=== PATIENT | male | born 1950 | race Caucasian/White ===

== ENCOUNTER 2016-02-06 23:43 | Inpatient (IN) | payer MEDICARE, MEDICAID ==
[~2016-02-06] VITALS: Ht 170.2 cm; Wt 83.9 kg
[2016-02-07 01:07] LABS: BASOPHILS % (AUTO) 0.5 % (0.0-2.0); DIFF TOTAL % 100 %; EOSINOPHILS # (AUTO) 0.2 /CMM (0.0-0.7); EOSINOPHILS % (AUTO) 1.9 % (0.0-6.0); HEMATOCRIT 44 % (39-51); HEMOGLOBIN 14.7 g/dL (13.5-17.5); LYMPHOCYTES # (AUTO) 1.8 /CMM (0.8-4.8); LYMPHOCYTES % (AUTO) 20.1 % (20.0-44.0); MEAN CORPUSCULAR HEMOGLOBIN 30 PG (26.0-33.0); MEAN CORPUSCULAR HGB CONC 34 g/dl (31.0-36.0); MEAN CORPUSCULAR VOLUME 90 fL (80-96); MONOCYTES # (AUTO) 0.6 /CMM (0.1-1.30); MONOCYTES % (AUTO) 7.1 % (2.0-12.0); NEUTROPHILS # (AUTO) 6.3 /CMM (1.8-8.9); NEUTROPHILS % (AUTO) 70.4 % (43.0-81.0); PLATELET COUNT (AUTO) 231 /CMM (150-450); RED BLOOD CELL COUNT(AUTO) 4.87 MIL/uL (4.5-6.0); WHITE BLOOD COUNT (AUTO) 8.9 K/uL (4.3-11.0)
[2016-02-07 01:18] LABS: ANION GAP 11 (5-14); CALCIUM, SERUM 9.1 mg/dL (8.5-10.1); CARBON DIOXIDE 30 mmol/L (21-32); CHLORIDE 103 mmol/L (98-107); CREATININE 1.2 mg/dL (0.6-1.3); GFR 61 mL/min (>60); GLUCOSE 120 mg/dL (74-106); POTASSIUM 4.2 mmol/L (3.5-5.1); SODIUM SERUM 140 mmol/L (136-145); UREA NITROGEN, BLOOD 21 mg/dL (7-18)
[2016-02-07 01:22] LABS: ALANINE AMINOTRANSFERASE 29 U/L (12-78); ALBUMIN 3.8 g/dL (3.4-5.0); ASPARTATE AMINOTRANSFERASE 32 U/L (15-37); BILIRUBIN,DIRECT 0.1 mg/dL (0.0-0.2); BILIRUBIN,TOTAL 0.4 mg/dL (0.2-1.0); INDIRECT BILIRUBIN 0.3 mg/dL (0.0-1.1); TOTAL PROTEIN, SERUM 8.1 g/dL (6.4-8.2)
[2016-02-07 01:23] LABS: ACETAMINOPHEN 0 ug/ml (10-30); SALICYLATE 0.4 mg/dL (2.8-20.0)
[2016-02-07 01:31] LABS: KETONES,URINE NEGATIVE (NEGATIVE); LEUKOCYTE ESTERASE ,URINE NEGATIVE (NEGATIVE)
[2016-02-07 01:37] LABS: CANNABINOID, URINE NEGATIVE (NEGATIVE); PHENCYCLIDINE SCREEN,URINE NEGATIVE (NEGATIVE)
[2016-02-07 01:45] LABS: ADD UA MICROSCOPIC YES
[2016-02-07 01:46] LABS: ADD URINE CULTURE NO; RBC,URINE 0-2 /HPF (0-2); WBC,URINE NONE SEEN /HPF (0-3)
[2016-02-07] MEDS ORDERED: MAGNESIUM HYDROXIDE 30 ML UDC PO PRN (03:00)
[2016-02-07] MEDS ORDERED: MAG HYDROX/AL HYDROX/SIMETH 30 ML UDC PO PRN (03:00)
[2016-02-07] MEDS ORDERED: ACETAMINOPHEN 325 MG TABLET PO PRN (03:00)
[2016-02-07 03:13] VITALS: BP 149/95
[2016-02-07 08:00] VITALS: BP 144/81
[2016-02-07] MEDS ORDERED: DONE5TAB34 PO (08:13)
[2016-02-07] MEDS ORDERED: DULO60CA45 PO (08:13)
[2016-02-07] MEDS: LORAZEPAM 0.5 MG TABLET PO PRN (13:49)
[2016-02-07 16:00] VITALS: BP 158/84
[2016-02-07] MEDS: QUETIAPINE FUMARATE 25 MG TABLET PO SCH (16:29)
[2016-02-07] MEDS ORDERED: CT SWABBABLE VALVE TRANS SET 1 EA INFUS.SET MC ONE (17:00)
[2016-02-07] MEDS ORDERED: IOHEXOL-300 100 ML VIAL IV ONE (17:00)
[2016-02-07] MEDS ORDERED: IV NS 0.9% 0 ML IV ONE (17:00)
[2016-02-07 20:00] VITALS: BP 151/92
[2016-02-07] MEDS ORDERED: IV NS 0.9% 250 ML IV ONE (23:47)
[2016-02-08] MEDS ORDERED: IV SET PRIMARY PUMP SET 1 EA INFUS.SET MC ONE (00:10)
[2016-02-08] MEDS ORDERED: IV NS 0.9% 0 ML IV ONE (00:10)
[2016-02-08] MEDS ORDERED: IOHEXOL-300 100 ML VIAL IV ONE ×2 (00:11→00:14)
[2016-02-08] MEDS ORDERED: CT SWABBABLE VALVE TRANS SET 1 EA INFUS.SET MC ONE (00:11)
[2016-02-08] MEDS: QUETIAPINE FUMARATE 25 MG TABLET PO SCH ×4 (00:48→21:28)
[2016-02-08] MEDS: DONEPEZIL 5 MG TABLET PO SCH ×2 (00:49→21:28)
[2016-02-08 07:21] LABS: CHOLESTEROL 160 mg/dL (<200); HDL CHOLESTEROL 59 mg/dL (40-60); LDL 93 mg/dL (0-99); TRIGLYCERIDES 90 mg/dL (30-150)
[2016-02-08 08:00] VITALS: BP 125/88
[2016-02-08] MEDS: NICOTINE PATCH (14MG) 14 MG PATCH.TD24 TD SCH (08:20)
[2016-02-08 16:01] VITALS: BP 138/90
[2016-02-08 19:49] VITALS: BP 145/87
[2016-02-09 08:00] VITALS: BP 142/87
[2016-02-09] MEDS: QUETIAPINE FUMARATE 25 MG TABLET PO SCH ×3 (08:44→22:04)
[2016-02-09] MEDS: NICOTINE PATCH (14MG) 14 MG PATCH.TD24 TD SCH (08:44)
[2016-02-09 16:00] VITALS: BP 144/88
[2016-02-09 20:04] VITALS: BP 146/99
[2016-02-09] MEDS: DONEPEZIL 5 MG TABLET PO SCH (22:04)
[2016-02-09] MEDS: ZOLPIDEM TARTRATE 5 MG TABLET PO PRN (22:05)
[2016-02-10 00:36] VITALS: BP 147/86
[2016-02-10 08:14] VITALS: BP 143/95
[2016-02-10] MEDS: QUETIAPINE FUMARATE 25 MG TABLET PO SCH ×4 (08:24→21:09)
[2016-02-10] MEDS: NICOTINE PATCH (14MG) 14 MG PATCH.TD24 TD SCH (08:24)
[2016-02-10] MEDS: LORAZEPAM 0.5 MG TABLET PO PRN (08:38)
[2016-02-10 16:35] VITALS: BP 150/88
[2016-02-10 19:59] VITALS: BP 154/79
[2016-02-10] MEDS: DONEPEZIL 5 MG TABLET PO SCH (21:09)
[2016-02-10] MEDS: ZOLPIDEM TARTRATE 5 MG TABLET PO PRN (21:09)
[2016-02-10] MEDS ORDERED: GUAIFENESIN/D-METHORPHAN HB 5 ML UDC PO PRN (21:30)
[2016-02-11 08:13] VITALS: BP 128/85
[2016-02-11] MEDS: NICOTINE PATCH (14MG) 14 MG PATCH.TD24 TD SCH (09:09)
[2016-02-11] MEDS: QUETIAPINE FUMARATE 25 MG TABLET PO SCH ×2 (09:09→17:00)
[2016-02-11 16:17] VITALS: BP 147/105
[2016-02-11 20:10] VITALS: BP 153/97
[2016-02-11] MEDS: DONEPEZIL 5 MG TABLET PO SCH (21:25)
[2016-02-11] MEDS: QUETIAPINE FUMARATE 100 MG TABLET PO SCH (21:25)
[2016-02-12 08:00] VITALS: BP 134/73
[2016-02-12] MEDS: QUETIAPINE FUMARATE 25 MG TABLET PO SCH ×2 (08:05→16:09)
[2016-02-12] MEDS: NICOTINE PATCH (14MG) 14 MG PATCH.TD24 TD SCH (08:07)
[2016-02-12 16:00] VITALS: BP 127/85
[2016-02-12 20:14] VITALS: BP 157/89
[2016-02-12] MEDS: QUETIAPINE FUMARATE 100 MG TABLET PO SCH (21:07)
[2016-02-12] MEDS: DONEPEZIL 5 MG TABLET PO SCH (21:07)
[2016-02-13 08:00] VITALS: BP 128/83
[2016-02-13] MEDS: NICOTINE PATCH (14MG) 14 MG PATCH.TD24 TD SCH (08:53)
[2016-02-13] MEDS: QUETIAPINE FUMARATE 25 MG TABLET PO SCH ×2 (08:53→17:33)
[2016-02-13 16:02] VITALS: BP 134/90
[2016-02-13 20:00] VITALS: BP 144/91
[2016-02-13] MEDS: QUETIAPINE FUMARATE 100 MG TABLET PO SCH (21:07)
[2016-02-13] MEDS: DONEPEZIL 5 MG TABLET PO SCH (21:07)
[2016-02-14 08:00] VITALS: BP 131/91
[2016-02-14] MEDS: QUETIAPINE FUMARATE 25 MG TABLET PO SCH ×2 (09:15→16:29)
[2016-02-14] MEDS: NICOTINE PATCH (14MG) 14 MG PATCH.TD24 TD SCH (09:15)
== END 2016-02-14 16:30 | disposition home health service (06) | DRG 885 ==
LOC: ER 23:57 → GPS 02-07 02:14
PROVIDERS: ADMIT Psychiatry & Neurology Psychiatry; ATTEND Family Medicine
DX: F29 Unspecified psychosis not due to a substance or known physiological condition (principal); F02.81 Dementia in other diseases classified elsewhere, unspecified severity, with behavioral disturbance; R47.01 Aphasia; G30.9 Alzheimer's disease, unspecified; I10 Essential (primary) hypertension; F20.9 Schizophrenia, unspecified
CPT/HCPCS: 36415; 70470-TC; 80048-TC; 80061-TC; 80076-TC; 81000-TC; 84425; 85025-TC; 87081-TC; 95819-TC; A4606; G0434; G6038-TC; G6039-TC; G6040-TC; J7050; Q9967; Z7610

== ENCOUNTER 2017-07-27 09:22 | Inpatient (IN) | payer MEDICARE, MEDICAID ==
[~2017-07-27] VITALS: Ht 360.7 cm; Wt 69.9 kg
[~2017-07-27 09:22] MED LIST: DONE5TAB34 PO; DULO60CA45 PO
--- NOTE | 2017-07-27 09:25 | NUR ---
ESTRADA FROM [facility] FOR G-TUBE REPLACEMENT. PER FACILITY, CHUA IN PLACE OF TUBE, BUT UPON ARRIVAL TO ER, NOTHING IN PLACE OF GTUBE. PATIENT IS A/OX 1 AT BASELINE, BREATHING EVEN AND UNLABORED. NO SOB, NAD, VITALS STABLE. SAFETY AND COMFORT MEASURES IN PLACE. AWAITING MD ORDERS.
--- NOTE | 2017-07-27 09:40 | NUR ---
AT KATHY FRANCO
[2017-07-27] MEDS ORDERED: LORAZEPAM INJ 2 MG/ML VIAL ONE (09:46)
[2017-07-27] MEDS ORDERED: HALOPERIDOL LACTATE INJ 5 MG/ML VIAL ONE (09:46)
--- NOTE | 2017-07-27 09:56 | NUR ---
PATIENT VERY AGITATED, MEDICATED PATIENT PER MD ORDERS.
--- NOTE | 2017-07-27 09:59 | NUR ---
PAGED EPIC INSIGHTS MANAGER -- DR MORAN
[2017-07-27] MEDS ORDERED: HALOPERIDOL LACTATE INJ 5 MG/ML VIAL IM ONE (10:00)
[2017-07-27] MEDS ORDERED: LORAZEPAM INJ 2 MG/ML VIAL IM ONE (10:00)
[2017-07-27] MEDS ORDERED: MAGN400O6 GT (10:01)
[2017-07-27] MEDS ORDERED: IPRA3AMP23 IH (10:01)
[2017-07-27] MEDS ORDERED: LORA-259 GT (10:01)
[2017-07-27] MEDS ORDERED: CHOL100044 GT (10:01)
[2017-07-27] MEDS ORDERED: NA P133E RC (10:01)
[2017-07-27] MEDS ORDERED: FAMO20TA8 GT (10:01)
[2017-07-27] MEDS ORDERED: QUET200T GT (10:01)
[2017-07-27] MEDS ORDERED: ACET-868 GT (10:01)
[2017-07-27] MEDS ORDERED: SENN8.8S12 GT (10:01)
[2017-07-27] MEDS ORDERED: BISA10SU8 RC (10:01)
[2017-07-27] MEDS ORDERED: LACT-96 GT (10:01)
[2017-07-27] MEDS ORDERED: DOCU-270 GT (10:01)
[2017-07-27] MEDS ORDERED: AMLO5TAB7 GT (10:01)
[2017-07-27] MEDS ORDERED: HALO100A2 IM (10:01)
[2017-07-27] MEDS ORDERED: MEMA10TA GT (10:01)
[2017-07-27] MEDS ORDERED: ACET-2605 GT (10:01)
[2017-07-27] MEDS ORDERED: ZOLP5TAB2 GT (10:01)
--- NOTE | 2017-07-27 10:11 | NUR ---
PATIENT IS GOING TO [facility] 309-2.
--- NOTE | 2017-07-27 10:18 | NUR ---
NEW IV STARTED ON LAC, 20G. BLOOD DRAWN AND SENT TO LAB.
[2017-07-27 10:20] LABS: BASOPHILS % (AUTO) 0.3 % (0.0-2.0); EOSINOPHILS % (AUTO) 1.2 % (0.0-6.0); HEMATOCRIT 39 % (39-51); HEMOGLOBIN 13.4 g/dL (13.5-17.5); LYMPHOCYTES # (AUTO) 1.1 /CMM (0.8-4.8); LYMPHOCYTES % (AUTO) 11.9 % (20.0-44.0); MEAN CORPUSCULAR HGB CONC 34 g/dl (31.0-36.0); MEAN CORPUSCULAR VOLUME 89 fL (80-96); MONOCYTES # (AUTO) 0.5 /CMM (0.1-1.30); NEUTROPHILS # (AUTO) 7.4 /CMM (1.8-8.9); NEUTROPHILS % (AUTO) 81.6 % (43.0-81.0); PLATELET COUNT (AUTO) 239 /CMM (150-450); RDW COEFFICIENT OF VARIATION 13.2 (11.5-15.0); RED BLOOD CELL COUNT(AUTO) 4.41 MIL/uL (4.5-6.0); WHITE BLOOD COUNT (AUTO) 9.1 K/uL (4.3-11.0)
--- NOTE | 2017-07-27 10:21 | NUR ---
REPORT GIVEN TO WILMER HERRON FOR MONCHO UPON ADMISSION.
[2017-07-27 10:27] LABS: CALCIUM, SERUM 9.5 mg/dL (8.5-10.1); CREATININE 1.4 mg/dL (0.6-1.3)
[2017-07-27] MEDS ORDERED: MORPHINE SULFATE INJ 4 MG/ML DISP.SYRIN IV PRN (10:30)
[2017-07-27] MEDS ORDERED: Z GUARD REMEDY 2 OZ OINT TP PRN (10:30)
[2017-07-27] MEDS ORDERED: ONDANSETRON HCL/PF 4 MG/2 ML VIAL IVP PRN (10:30)
[2017-07-27] MEDS ORDERED: BISACODYL SUPP (10 MG) 10 MG/SUPP.RECT SUPP.RECT RC PRN (10:30)
[2017-07-27] MEDS ORDERED: NA PHOS,M-B/NA PHOS,DI-BA 1 EA ENEMA RC PRN (10:30)
[2017-07-27 10:33] LABS: ALBUMIN 3.4 g/dL (3.4-5.0); BILIRUBIN,DIRECT 0.3 mg/dL (0.0-0.2); BILIRUBIN,TOTAL 0.6 mg/dL (0.2-1.0); TOTAL PROTEIN, SERUM 7.9 g/dL (6.4-8.2)
[2017-07-27] MEDS ORDERED: IPRATROPIUM NEB FS 0.5 MG/2.5 ML AMPUL.NEB NEB PRN (11:00)
--- NOTE | 2017-07-27 11:19 | NUR ---
PATIENT TRANSPORTED TO [facility] VIA STRETCHER. RNWILMER TO PROVIDE MONCHO.
[2017-07-27 11:30] VITALS: BP 140/80
--- NOTE | 2017-07-27 11:30 | NUR ---
GENERAL TECHNICIAN NOTES RECEIVED RESIDENT AWAKE VIA GINO FROM ER. PATIENT CAME IN FROM [facility] DUE TO GT REPLACEMENT AFTER PULLING IT OUT. GT SITE INTACT AND COVERED WITH A DRESSING. FOR GI CONSULT - PENDING. NPO. PATIENT IS ALERT AND ORIENTD X1-2. CONFUSED. VERBALLY RESPONSIVE. IV LINE ON LEFT AC #20 - INTACT AND PATENT. AMBULATORY. FREQUENTLY TRIES TO GET UP. ALSO WITH BEHAVIORS OF PICKING ON THE THINGS AROUND HIM. A 1:1 SITTER WAS PLACED. ALL OTHER NEEDS MET. KEPT CLEAN AND DRY. CALL LIGHT WITHIN REACH. BED ON LOWEST LOCKED POSITION. FALL PRECAUTIONS OBSERVED.
[2017-07-27] MEDS: LORAZEPAM INJ 2 MG/ML VIAL IV PRN ×2 (12:29→18:22)
[2017-07-27] MEDS: IV D5/0.45 NACL 1,000 ML IV PRN (13:18)
[2017-07-27] MEDS ORDERED: ALBUTEROL FS 2.5 MG/0.5 ML VIAL.NEB NEB PRN (13:30)
[2017-07-27 16:05] VITALS: BP 127/78
--- NOTE | 2017-07-27 18:40 | NUR ---
RN CLOSING NOTES PATIENT SITTING UP ON CHAIR WITH FREQUENT ATTEMPTS TO GET UP. 1:[address] ALERT AND ORIENTED X1-2, CONFUSED. VERBALLY RESPONSIVE. LAST ATIVAN GIVEN AT 1822. IV LINE ON LEFT AC #20 PATENT AND INTACT. INFUSING D5 1/2 NS @75ML/HR. GI CONSULT STILL PENDING. FOR LABS (CBC, BMP, MAG, AND PHOS) IN AM. STAT CHEST XRAY COMPLETED. KEPT CLEAN, DRY, AND COMFORTABLE. ALL NEEDS ATTENDED TO. BED ON LOWEST LOCKED POSITION. CALL LIGHT WITHIN REACH. FALL PRECAUTIONS OBSERVED. WILL ENDORSE TO ONCOMING RN FOR CONTINUITY OF CARE.
--- NOTE | 2017-07-27 19:10 | NUR ---
RN OPENING NOTES RECEIVED PT SITTING UP IN CHAIR, IN NO ACUTE DISTRESS, NOTED TO BE FIDGETING, NO SOB, BREATHING EVEN AND UNLABORED. PT WITH SITTER AT BEDSIDE. ALL PATIENT'S NEEDS ATTENDED TO AT THIS TIME. PLACED CALL LIGHT WITHIN EASY REACH. WILL CONTINUE TO MONITOR.
--- NOTE | 2017-07-27 21:00 | NUR ---
RN NOTE NOTED PT'S IV LINE TO BE PULLED OUT BY PATIENT. STARTED A NEW IV SITE ON RFA G#22. FLUSHED WITH 10 CC NS, INTACT AND PATENT. PATIENT NOTED WITH COMBATIVE BEHAVIOR BUT WAS RE-ORIENTED. WILL CONTINUE TO MONITOR.
[2017-07-28] MEDS: LORAZEPAM INJ 2 MG/ML VIAL IV PRN ×4 (00:44→21:29)
--- NOTE | 2017-07-28 06:57 | NUR ---
RN CLOSING NOTES PATIENT AWAKE ALL THROUGHOUT THE SHIFT, ALL DUE MEDICATION GIVEN. WITH MULTIPLE ATTEMPTS OF GETTING OUT OF BED UNASSISTED RE-ORIENTED PT NEEDED. PT NEEDS REINFORCEMENT AND HAS SITTER AT BEDSIDE. IVF INFUSING WELL ON RFA G22 ORDERED. ALL PATIENT'S NEEDS ATTENDED TO THROUGHOUT THE SHIFT. PLACED CALL LIGHT WITHIN EASY REACH. BED PLACED IN LOW POSITION AND LOCKED IN PLACE. WILL ENDORSE TO AM SHIFT NURSE FOR CONTINUITY OF CARE.
[2017-07-28 07:32] LABS: BASOPHILS % (AUTO) 0.5 % (0.0-2.0); EOSINOPHILS % (AUTO) 0.7 % (0.0-6.0); HEMATOCRIT 40 % (39-51); HEMOGLOBIN 13.8 g/dL (13.5-17.5); LYMPHOCYTES # (AUTO) 1.9 /CMM (0.8-4.8); LYMPHOCYTES % (AUTO) 20.2 % (20.0-44.0); MEAN CORPUSCULAR HGB CONC 34 g/dl (31.0-36.0); MEAN CORPUSCULAR VOLUME 92 fL (80-96); MONOCYTES # (AUTO) 0.6 /CMM (0.1-1.30); MONOCYTES % (AUTO) 6.8 % (2.0-12.0); NEUTROPHILS # (AUTO) 6.8 /CMM (1.8-8.9); NEUTROPHILS % (AUTO) 71.8 % (43.0-81.0); PLATELET COUNT (AUTO) 266 /CMM (150-450); RDW COEFFICIENT OF VARIATION 14.1 (11.5-15.0); RED BLOOD CELL COUNT(AUTO) 4.36 MIL/uL (4.5-6.0); WHITE BLOOD COUNT (AUTO) 9.5 K/uL (4.3-11.0)
[2017-07-28 07:47] LABS: CALCIUM, SERUM 9.2 mg/dL (8.5-10.1); CREATININE 1.1 mg/dL (0.6-1.3); MAGNESIUM 1.9 mg/dL (1.8-2.4); PHOSPHORUS 2.9 mg/dL (2.5-4.9); POTASSIUM 3.7 mmol/L (3.5-5.1)
[2017-07-28 08:00] VITALS: BP 129/84
--- NOTE | 2017-07-28 09:20 | NUR ---
MS RN NOTES PATIENT IN DISORIENTED AND CONFUSED, BREATHING ON ROOM AIR. APPEARS AGITATED AND RESTLESS, DENIES PAIN, REORIENTED AND UNABLE TO CALM DOWN. PRN ATIVAN IV GIVEN, WILL REASSESS. CALL LIGHT WITHIN REACH, 1:1 SITTER AT THE BEDSIDE. WILL CONT TO MONITOR.
--- NOTE | 2017-07-28 14:38 | NUR ---
PATIENT STILL AGITATED, UNABLE TO CONTROL BEHAVIOR RESTLESSNESS, AT THE BEDSIDE. SAFETY MEASURES IN PLACE. PATIENT IS NOT DUE FOR NEXT ATIVAN PRN DOSE. INFORMED DR. MORAN, FREQUENCY CHANGED TO [id number] PRN.
[2017-07-28 16:00] VITALS: BP_SYST 134; BP_DIAS 77; BP_DIAS 97
--- NOTE | 2017-07-28 18:49 | NUR ---
MS RN CLOSING NOTES PATIENT IS CONFUSED, EPISODE OF AGITATION AND RESTLESSNESS. BEHAVIOR ANXIETY, SEVERE AGITATION MANAGED BY PRN IV ATIVAN WITH INTERMITTENT RELIEF. MAINTAINED 1:1 SITTER AT THE BEDSIDE. PATIENT IS CURRENTLY NPO, FOR PEG PLACEMENT TOMORROW 07/29/17, PROCEDURE CONSENTED BY . CONSENT FORM PLACE IN THE CHART. WILL ENDORSE TO ONCOMING RN.
--- NOTE | 2017-07-28 19:15 | NUR ---
RN OPENING NOTES RECEIVED PATIENT SITTING UP IN BED, REMAINS TO BE CONFUSED, ALERT ONLY TO SELF. NOTED PT WITH NO SOB, IN NO ACUTE DISTRESS, DENIES PAIN AT THIS TIME. PATIENT WITH POOR SAFETY AWARENESS, PLACED BED IN LOW POSITION AND LOCKED IN PLACE. CALL LIGHT WITHIN EASY REACH WITH SITTER AT BEDSIDE.WILL CONTINUE TO MONITOR.
[2017-07-28] MEDS: IV D5/0.45 NACL 1,000 ML IV PRN (21:29)
--- NOTE | 2017-07-28 21:29 | NUR ---
RN NOTES PATIENT IN BED, NOTED TO BE ANXIOUS AND WITH MULTIPLE ATTEMPTS OF GETTING OUT OF BED UNASSISTED, REORIENTED AND REDIRECTED PT BUT CONTINUES WITH BEHAVIOR. ADMINISTERED ATIVAN ORDERED. WILL CONTINUE TO MONITOR PT.
[2017-07-29] VITALS (10 sets, daily range): BP systolic 107–135; BP diastolic 61–87
[2017-07-29] MEDS: LORAZEPAM INJ 2 MG/ML VIAL IV PRN ×2 (06:11→16:12)
--- NOTE | 2017-07-29 06:22 | NUR ---
RN CLOSING NOTES PATIENT IN BED, AWAKE, NO SOB, BREATHING EVEN AND UNLABORED. PT SLEPT INTERMITTENTLY THROUGHOUT THE SHIFT, CONTINUES TO BE CONFUSED AND WAS RE-ORIENTED NEEDED. PT CONTINUES TO RECEIVE IVF ORDERED VIA RFA IVP LINE AND IS TOLERATING WELL. ALL PATIENT'S NEEDS ATTENDED TO. PLACED BED IN LOW POSITION, LOCKED IN PLACE, CALL LIGHT WITHIN EASY REACH. SITTER AT BEDSIDE. WILL ENDORSE TO AM SHIFT NURSE FOR CONTINUITY OF CARE.
[2017-07-29 07:22] LABS: BASOPHILS % (AUTO) 0.3 % (0.0-2.0); EOSINOPHILS % (AUTO) 1.9 % (0.0-6.0); HEMATOCRIT 40 % (39-51); HEMOGLOBIN 13.5 g/dL (13.5-17.5); LYMPHOCYTES # (AUTO) 1.7 /CMM (0.8-4.8); LYMPHOCYTES % (AUTO) 19.6 % (20.0-44.0); MEAN CORPUSCULAR HGB CONC 34 g/dl (31.0-36.0); MEAN CORPUSCULAR VOLUME 93 fL (80-96); MONOCYTES # (AUTO) 0.7 /CMM (0.1-1.30); MONOCYTES % (AUTO) 8.1 % (2.0-12.0); NEUTROPHILS # (AUTO) 6.2 /CMM (1.8-8.9); NEUTROPHILS % (AUTO) 70.1 % (43.0-81.0); PLATELET COUNT (AUTO) 254 /CMM (150-450); RDW COEFFICIENT OF VARIATION 13.8 (11.5-15.0); RED BLOOD CELL COUNT(AUTO) 4.32 MIL/uL (4.5-6.0); WHITE BLOOD COUNT (AUTO) 8.9 K/uL (4.3-11.0)
--- NOTE | 2017-07-29 07:27 | NUR ---
MS RN OPENING NOTES RECEIVED PATIENT AWAKE IN BED IN NO ACUTE SIGNS OF DISTRESS. SITTER AT BEDSIDE. A/O X1. CALMED AND QUIET WITH NO SIGNS OF PAIN OBSERVED AT THIS TIME. ON ROOM AIR, BREATHING EVEN AND UNLABORED. IV ACCESS ON RFA G#22 INTACT AND PATENT WITH IVF OF D5 1/2 NS @ 75ML/HR INFUSING, NO SIGNS OF INFILTRATION NOTED. ALL SAFETY MEASURE IN PLACE. BED IN LOW/LOCKED POSITION. CALL LIGHT WITHIN EASY REACH. WILL CONTINUE TO MONITOR.
[2017-07-29 07:38] LABS: CALCIUM, SERUM 9.1 mg/dL (8.5-10.1); CREATININE 1.1 mg/dL (0.6-1.3); MAGNESIUM 1.7 mg/dL (1.8-2.4); PHOSPHORUS 2.8 mg/dL (2.5-4.9); POTASSIUM 4.3 mmol/L (3.5-5.1)
[2017-07-29 07:51] LABS: INR 0.96 (0.87-1.13)
[2017-07-29] MEDS: Magnesium 1GM/D5W 100ML PREMIX 100 ML IV SCH ×2 (10:59→13:43)
[2017-07-29] MEDS ORDERED: MIDAZOLAM HCL 2 MG/2ML VIAL ONE (12:41)
--- NOTE | 2017-07-29 13:46 | NUR ---
RN NOTES PATIENT RETURNED FROM SURGERY S/P PEG TUBE PLACEMENT FR #20 BY ALEXEI PETERS, NO BLEEDING AT SITE NOTED. BECAUSE PT IS CONFUSE AND HSA TENDENCY TO PULL OUT PEG TUBE, ABDOMINAL BINDER IN PLACE FOR PROTECTION . AT BEDSIDE AND AWARE. DR LINDA WITH ORDER TO RESUME ALL PRE-OP ORDERS ,TO START ON G-TUBE FEEDING AND ROUTINE V/S POST OP. V/S TAKEN: 115/82MMHG, P 86, R 18, T 97.9F AND SP02 96%. LEAVE MESSAGE TO DR MORAN THAT PT CAME BACK TO UNIT AND TO VERIFY AND DO MED RECONCILIATION FOR PT. WILL CONTINUE TO MONITOR
--- NOTE | 2017-07-29 14:00 | NUR ---
RN NOTES RECEIVED CALL FROM HENRY MORGAN OF [facility] AND REPORTED THAT PT IS POSITIVE FOR MRSA OF BOTH NARES. MD AND CHARGE NURSE MADE AWARE. PT STARTED ON MRSA PRECAUTIONS. WILL CONTINUE TO MONITOR.
[2017-07-29] MEDS ORDERED: JEVITY 1.2 CAL 1,000 ML BOTTLE GT PRN (15:00)
--- NOTE | 2017-07-29 18:57 | NUR ---
RN NOTES PT WENT DOEN FOR CT OF HEAD W/O CONTRAST BUT UN-ABLE TO DO. PATIENT CONFUSED, KEPT MOVING AND WONT STAY STILL . ASSEMBLER ENGINE SAID THAT THEY WILL TRY AGAIN TOMORROW WHEN THE IS HERE. WILL CONTINUE TO MONITOR.
--- NOTE | 2017-07-29 19:19 | NUR ---
BROUGHT THE PT TO CT, PT UNABLE TO COOPERATE, INFORMED RN ([place])
--- NOTE | 2017-07-29 19:19 | NUR ---
MS RN OPENING NOTE A/O X1 CONFUSED AND AGITATED, NO FACIAL GRIMACING NOTED FOR PAIN. NO SOB OR DISTRESS NOTED, CALL LIGHT WITHIN REACH. SAFETY MEASURES IMPLEMENTED. WILL CONTINUE TO MONITOR THROUGHOUT SHIFT.
--- NOTE | 2017-07-29 19:28 | NUR ---
MS RN CLOSING NOTES PATIENT AWAKE IN BED AND RESTING AT MODERATE HIGH BACKREST. SITTER AT BEDSIDE FOR CLOSE MONITORING. A/O X1. RESTLESS AND CONFUSED MOST OF THE DAY, FREQUENT REDIRECTION DONE AND MORAL SUPPORT GIVEN. ALL NEEDS AND CARE PROVIDED WELL. ON ROOM AIR, BREATHING EVEN AND UNLABORED. IV ACCESS ON RFA G#22 INTACT AND PATENT WITH IVF OF D5 1/2 NS @ 75ML/HR INFUSING, NO SIGNS OF INFILTRATION NOTED. PEG TUBE IN PLACE AND PATENT WITH FEEDING OF JEVITY 1.2 @ 75ML/HR IN PROGRESS, TOLERATING WELL. ASPIRATION PRECAUTIONS MAINTAINED. ABD BINDER IN PLACE FOR PROTECTION. ALL SAFETY MEASURE IN PLACE. HOB ELEVATED. BED IN LOW/LOCKED POSITION. CALL LIGHT WITHIN EASY REACH. ENCORED TO SOFTWARE DEPLOYMENT ENGINEER NURSE FOR MONCHO
[2017-07-29] MEDS: IV D5/0.45 NACL 1,000 ML IV PRN (20:40)
[2017-07-29] MEDS: MUPIROCIN OINT 2% 22 GM TUBE SCH (20:42)
[2017-07-29 23:20] LABS: APPEARANCE,URINE SL CLOUDY (CLEAR); BILIRUBIN,URINE NEGATIVE (NEGATIVE); BLOOD, URINE 2+ Ery/uL (NEGATIVE); COLOR,URINE YELLOW (YELLOW); KETONES,URINE TRACE (NEGATIVE); LEUKOCYTE ESTERASE ,URINE NEGATIVE (NEGATIVE); NITRITE, URINE NEGATIVE (NEGATIVE); PROTEIN,URINE NEGATIVE (NEGATIVE); UGLUCOSE NEGATIVE (NEGATIVE)
[2017-07-29 23:28] LABS: BACTERIA,URINE Few /HPF (None Seen); RBC,URINE 51-80 /HPF (0-2); SQUAMOUS EPITHELIAL CELL,UR Few /HPF (None Seen); WBC,URINE 0-2 /HPF (0-3)
[2017-07-30] MEDS: LORAZEPAM INJ 2 MG/ML VIAL IV PRN (01:04)
--- NOTE | 2017-07-30 02:10 | NUR ---
MS RN NOTES PATIENT REMAINS CALM NO S/S OF DISTRESS
--- NOTE | 2017-07-30 06:30 | NUR ---
MS RN CLOSING NOTES PT COMFORTABLY ASLEEP AND EASILY AWAKEN, A/O X1, GT FEEDING INFUSING ORDERED AND TOLERATED WELL. IN STABLE CONDITION. RESPIRATION EVEN AND UNLABORED. KEPT CLEAN AND DRY AND COMFORTABLE, ALL NURSING CARE RENDERED. NEEDS ATTENDED AND ANTICIPATED, GOOD SKIN CARE PROVIDED. FREQUENT VISUAL CHECK DONE FOR SAFETY EVERY 2 HOURS. ON LOW BED AT ALL TIMES TO ENSURE SAFETY. SAFE HAZARD FREE ENVIRONMENT PROVIDED. NO COMPLAINS OF PAIN. ASSIST REPOSITION EVERY 2 HOURS. CALL LIGHT WITHIN EASY TO REACH. WILL ENDORSE NEXT SHIFT CONTINUITY OF CARE.
--- NOTE | 2017-07-30 07:20 | NUR ---
MS RN OPENING NOTES RECEIVED PATIENT AWAKE IN BED 1:1 SITTER AT BEDSIDE. A/O AND VERBALLY RESPONSIVE, DENIES PAIN OR DISCOMFORTS AT THIS TIME. ON ROOM AIR, BREATHING EVEN AND UNLABORED. IV ACCESS ON RFA G#22 INTACT AND PATENT WITH IVF OF D5 1/2 NS @ 75ML/HR INFUSING, NO SIGNS OF INFILTRATION NOTED. PEG TUBE IN PLACE WITH FEEDING OF JEVITY 1.2 @ 75ML/HR ONGOING, TOLERATING WELL. ASPIRATION PRECAUTIONS MAINTAINED. ALL SAFETY MEASURES IN PLACE. BED IN LOW/LOCKED POSITION. SIDE-RAILS UP X3. CALL LIGHT WITHIN EASY REACH. WILL CONTINUE TO MONITOR.
[2017-07-30 08:00] VITALS: BP 131/73
[2017-07-30] MEDS: MUPIROCIN OINT 2% 22 GM TUBE SCH (09:05)
--- NOTE | 2017-07-30 12:51 | NUR ---
RN NOTES PATIENT FOR DISCHARGE THIS AFTERNOON. PICK-UP TIME IS 1400. CALLED AND REPORT GIVEN REI ADMITTING NURSE OF [facility] AND REQUESTED HOME MEDS LIST TO BE FAXED. HOME MEDS LIST FAXED AT RECEIVED. PT'S [facility] FLOOD CALLED AND INFORMED OF PT'S TRANSFER AND SAID THAT SHE WILL GO AND VISIT PT TO [facility] THIS AFTERNOON.
--- NOTE | 2017-07-30 14:06 | NUR ---
RN DISCHARGED NOTES PT DISCHARGED TO [facility] IN STABLE CONDITION. A/O X1-2 WITH PERIODS OF CONFUSION NOTED, REDIRECTED AND REORIENTED FREQUENTLY, SAME GIVEN EMOTIONAL SUPPORT AND NEEDS/CARE PROVIDED WELL. V/S TAKEN AND RECORDED. PEG TUBE IN PLACE AND PATENT, PHOTO OF PEG TUBE SITE TAKEN AND FILED ON CHART, ABDOMINAL BINDER KEPT IN PLACE FOR PROTECTION. IV ACCES REMOVED WITH MINIMAL BLEEDING NOTED, PRESSURE GAUZE APPLIED AND TAPED. ALL BELONGINGS ACCOUNTED FOR AND SIGNED FORM. PT UN-ABLE TO COMPREHEND WHEN HEALTH TEACHINGS AND DISCHARGE INSTRUCTIONS GIVEN. PT LEFT UNIT @ 1405 VIA [facility] IN NO ACUTE SIGNS OF DISTRESS ACCOMPANIED BY 2 EMT'S. MD AND CHARGE NURSE AWARE OF DISCHARGE.
[2017-08-04] MEDS ORDERED: HALOPERIDOL DECANOATE IM 100 MG/ML AMPUL IM SCH (09:00)
== END 2017-07-30 14:04 | DRG 393 ==
LOC: ER 09:26 → MED 10:27
PROVIDERS: ADMIT Internal Medicine; ATTEND Internal Medicine
PROC: 0DH63UZ Insertion of Feeding Device into Stomach, Percutaneous Approach (ICD-10-PCS; principal; 2017-07-29 12:05)
DX: K94.23 Gastrostomy malfunction (principal); N17.0 Acute kidney failure with tubular necrosis; G92 Toxic encephalopathy; F03.91 Unspecified dementia, unspecified severity, with behavioral disturbance; R13.10 Dysphagia, unspecified; I10 Essential (primary) hypertension; K21.9 Gastro-esophageal reflux disease without esophagitis; J44.9 Chronic obstructive pulmonary disease, unspecified; Z86.73 Personal history of transient ischemic attack (TIA), and cerebral infarction without residual deficits; F20.9 Schizophrenia, unspecified; Y73.8 Miscellaneous gastroenterology and urology devices associated with adverse incidents, not elsewhere classified; Y83.3 Surgical operation with formation of external stoma as the cause of abnormal reaction of the patient, or of later complication, without mention of misadventure at the time of the procedure; Y92.129 Unspecified place in nursing home as the place of occurrence of the external cause; E86.0 Dehydration
CPT/HCPCS: 36415; 43760; 70450-TC; 71045-TC; 80048-TC; 80076-TC; 81000-TC; 83735-TC; 84100-TC; 84443-TC; 85025-TC; 85610-TC; 85730-TC; 86850-TC; 87081-TC; A4606; A6402; J0690; J1630; J1631; J2060; J2250; J2704; J3475; J3490; J7030; Z7610